=== PATIENT | female | born 1985 | race Caucasian/White ===

== ENCOUNTER 2017-05-09 08:40 | Emergency (ER) | payer OTHER, MEDICAID ==
[~2017-05-09] VITALS: Ht 154.9 cm; Wt 61.7 kg
[~2017-05-09 08:40] MED LIST: AMOXICILLIN 50500 MG PO; AMOXICILLIN500 M1 PO; AZITHROMYCIN 2250 MG PO; CLARITIN-D 241 EACH PO; CYCLOBENZAPRINE5 MG PO; DIFLUCAN150 MG PO; FLAGYL500 MG PO; HYDROCODON-ACE1 EAC7 PO; LEVAQUIN 500 M500 M2 PO; MACROBID 100 M100 M1 PO; MEDROLDOSEPACK PO; NAPROSYN500 MG PO; NOHOMEMEDICATIONS; NORCO 5-325 TA1 EACH PO; PROAIR HFA8.5 GM IH; PROMETHAZINE D480 ML PO; TESSALON PERLE100 MG PO; TRAMADOL 50 MG50 MG PO; TRINATE TABLET1 TAB; TUSSIONEX PENN473 ML PO; UNKNOWN ANTIBIOTIC; ZOFRAN ODT4 MG DISSOLVE; ZOFRAN ODT4 MG PO; ZPAK PO
[2017-05-09 08:59] LABS: URINE BILIRUBIN NEGATIVE (Negative); URINE BLOOD NEGATIVE (Negative); URINE CLARITY CLEAR; URINE COLOR YELLOW; URINE GLUCOSE-RANDOM NEGATIVE (Negative); URINE KETONES NEGATIVE (Negative); URINE LEUKOCYTES-REFLEX 1+ (Negative); URINE NITRITE-REFLEX NEGATIVE (Negative); URINE PROTEIN NEGATIVE (Negative); URINE UROBILINOGEN 0.2 E.U./dl (0.2-1.0)
[2017-05-09 09:07] LABS: SQUAMOUS >10 Many /LPF (0-3)
[2017-05-09 09:08] LABS: BACTERIA-REFLEX 1-9 Few /HPF (None Seen); CASTS None Seen /LPF (None Seen); CRYSTALS None Seen /LPF (None Seen); MUCUS 4-6 Moderate strn/LPF (None Seen); URINE RBC 0-2 Rare /HPF (0-2); URINE WBC-REFLEX 6-15 Few /HPF (0-5)
[2017-05-09] MEDS ORDERED: BACTRIM DS TAB1 EACH PO (09:09)
[2017-05-09] MEDS ORDERED: PHENAZOPYRIDIN200 M2 PO (09:09)
[2017-05-09 09:32] VITALS: BP 138/66
== END 2017-05-09 09:32 | disposition home or self-care (01) ==
LOC: M.ERS 08:40
PROVIDERS: Emergency Medicine Emergency Medical Services
DX: N39.0 Urinary tract infection, site not specified (principal); F17.210 Nicotine dependence, cigarettes, uncomplicated; Z88.5 Allergy status to narcotic agent

== ENCOUNTER 2017-07-05 11:18 | Emergency (ER) | payer OTHER, MEDICAID ==
[~2017-07-05] VITALS: Ht 154.9 cm; Wt 54.4 kg
[~2017-07-05 11:18] MED LIST changes: +BACTRIM DS TAB1 EACH PO; +PHENAZOPYRIDIN200 M2 PO
[2017-07-05] MEDS ORDERED: TYLENOL EXTRA500 MG PO (11:27)
[2017-07-05] MEDS ORDERED: IBUPROFEN 800800 M1 PO (11:27)
[2017-07-05] MEDS ORDERED: PREDNISONE 20 M20 M1 PO (11:35)
[2017-07-05] MEDS ORDERED: ROBAXIN 750 MG750 M1 PO (11:35)
[2017-07-05 12:10] VITALS: BP 109/74
== END 2017-07-05 12:12 | disposition home or self-care (01) ==
LOC: M.ERS 11:18
DX: M54.42 Lumbago with sciatica, left side (principal); F17.210 Nicotine dependence, cigarettes, uncomplicated; Z88.5 Allergy status to narcotic agent

== ENCOUNTER 2017-08-18 12:27 | Emergency (ER) | payer OTHER, MEDICAID ==
[~2017-08-18] VITALS: Ht 157.5 cm; Wt 61.2 kg
[~2017-08-18 12:27] MED LIST changes: +IBUPROFEN 800800 M1 PO; +PREDNISONE 20 M20 M1 PO; +ROBAXIN 750 MG750 M1 PO; +TYLENOL EXTRA500 MG PO
[2017-08-18 12:54] LABS: URINE BILIRUBIN NEGATIVE (Negative); URINE BLOOD NEGATIVE (Negative); URINE CLARITY CLEAR; URINE COLOR YELLOW; URINE GLUCOSE-RANDOM NEGATIVE (Negative); URINE KETONES NEGATIVE (Negative); URINE LEUKOCYTES-REFLEX NEGATIVE (Negative); URINE NITRITE-REFLEX NEGATIVE (Negative); URINE PROTEIN NEGATIVE (Negative); URINE UROBILINOGEN 0.2 E.U./dl (0.2-1.0)
[2017-08-18 12:54] LABS: ABSOLUTE EOSINOPHILS 0.1 thou/uL (0.0-0.7); ABSOLUTE LYMPHOCYTES 2.4 thou/uL (0.8-5.3); ABSOLUTE MONOCYTES 0.3 thou/uL (0.0-1.2); ABSOLUTE NEUTROPHILS 6.4 thou/uL (1.6-8.1); BASOPHILS 0.5 %; EOSINOPHILS 0.8 %; HEMATOCRIT 43.7 % (37.0-47.0); HEMOGLOBIN 14.7 gm/dL (12.0-15.0); LYMPHOCYTES 26.2 %; MCH 31.4 pg (26.0-34.0); MCHC 33.7 g/dL (28.0-37.0); MCV 93.1 fL (80.0-100.0); MONOCYTES 3.5 %; NUCLEATED RBCS 0 /100WBC; PLATELET COUNT* 416 thou/uL (150-400); RBC 4.69 mil/uL (4.20-5.00); RDW-CV 13.2 % (10.5-14.5); WBC 9.2 thou/uL (4.0-11.0)
[2017-08-18 12:58] LABS: CALCIUM 9.2 mg/dL (8.5-10.1); CREATININE 0.9 mg/dL (0.6-1.3); POTASSIUM 4.1 mmol/L (3.5-5.1)
[2017-08-18 13:03] LABS: ALBUMIN 4.3 g/dL (3.4-5.0); TOTAL BILIRUBIN 0.3 mg/dL (<0.1-1.0); TOTAL PROTEIN 7.7 g/dL (6.4-8.2)
[2017-08-18 13:22] VITALS: BP 118/73
== END 2017-08-18 13:23 | disposition home or self-care (01) ==
LOC: M.ERS 12:27
PROVIDERS: Physician Assistant
DX: R19.7 Diarrhea, unspecified (principal); F17.210 Nicotine dependence, cigarettes, uncomplicated; Z88.5 Allergy status to narcotic agent; Z88.6 Allergy status to analgesic agent

== ENCOUNTER 2017-08-28 17:28 | Emergency (ER) | payer OTHER, MEDICAID ==
[~2017-08-28] VITALS: Ht 154.9 cm; Wt 58.5 kg
[2017-08-28] MEDS ORDERED: DIPHENHIST50 MG PO (18:33)
[2017-08-28] MEDS ORDERED: PREDNISONE50 MG PO (18:33)
[2017-08-28 18:54] VITALS: BP 132/70
== END 2017-08-28 18:54 | disposition home or self-care (01) ==
LOC: M.ERS 17:28
DX: T78.40XA Allergy, unspecified, initial encounter (principal); F17.210 Nicotine dependence, cigarettes, uncomplicated; X58.XXXA Exposure to other specified factors, initial encounter

== ENCOUNTER 2017-09-28 08:06 | Emergency (ER) | payer OTHER, MEDICAID ==
[~2017-09-28] VITALS: Ht 154.9 cm; Wt 54.4 kg
[~2017-09-28 08:06] MED LIST changes: +DIPHENHIST50 MG PO; +PREDNISONE50 MG PO
[2017-09-28] MEDS ORDERED: AMOXICILLIN 50500 MG PO (08:45)
[2017-09-28 08:50] VITALS: BP 119/68
== END 2017-09-28 08:50 | disposition home or self-care (01) ==
LOC: M.ERS 08:06
DX: J06.9 Acute upper respiratory infection, unspecified (principal); J02.9 Acute pharyngitis, unspecified; R51 Headache; F17.210 Nicotine dependence, cigarettes, uncomplicated; Z88.5 Allergy status to narcotic agent; Z91.09 Other allergy status, other than to drugs and biological substances

== ENCOUNTER 2017-10-04 09:18 | Emergency (ER) | payer OTHER, MEDICAID ==
[~2017-10-04] VITALS: Ht 154.9 cm; Wt 58.1 kg
[2017-10-04 09:32] VITALS: BP 123/77
[2017-10-04 09:38] LABS: URINE BILIRUBIN NEGATIVE (Negative); URINE BLOOD NEGATIVE (Negative); URINE CLARITY CLEAR; URINE COLOR YELLOW; URINE GLUCOSE-RANDOM NEGATIVE (Negative); URINE KETONES NEGATIVE (Negative); URINE LEUKOCYTES-REFLEX TRACE (Negative); URINE NITRITE-REFLEX NEGATIVE (Negative); URINE PROTEIN NEGATIVE (Negative); URINE UROBILINOGEN 0.2 E.U./dl (0.2-1.0)
[2017-10-04] MEDS ORDERED: KEFLEX500 M1 PO (09:44)
[2017-10-04 10:21] LABS: BACTERIA-REFLEX >30 Many /HPF (None Seen); MUCUS 0-3 Light strn/LPF (None Seen); SQUAMOUS >10 Many /LPF (0-3); URINE WBC-REFLEX 6-15 Few /HPF (0-5)
[2017-10-04 10:22] LABS: CASTS None Seen /LPF (None Seen); CRYSTALS None Seen /LPF (None Seen); URINE RBC 0-2 Rare /HPF (0-2)
== END 2017-10-04 09:52 | disposition home or self-care (01) ==
LOC: M.ERS 09:18
PROVIDERS: Emergency Medicine Emergency Medical Services
DX: N39.0 Urinary tract infection, site not specified (principal); J32.9 Chronic sinusitis, unspecified; F17.210 Nicotine dependence, cigarettes, uncomplicated

== ENCOUNTER 2017-10-06 19:28 | Emergency (ER) | payer OTHER, MEDICAID ==
[~2017-10-06] VITALS: Ht 154.9 cm; Wt 59.9 kg
[~2017-10-06 19:28] MED LIST changes: +KEFLEX500 M1 PO
[2017-10-06 19:38] VITALS: BP 132/76
== END 2017-10-06 19:58 | disposition home or self-care (01) ==
LOC: M.ERS 19:28
DX: S41.112D Laceration without foreign body of left upper arm, subsequent encounter (principal); F17.210 Nicotine dependence, cigarettes, uncomplicated; X58.XXXD Exposure to other specified factors, subsequent encounter

== ENCOUNTER 2017-12-06 11:30 | Emergency (ER) | payer OTHER, MEDICAID ==
[~2017-12-06] VITALS: Ht 154.9 cm; Wt 56.7 kg
[2017-12-06] MEDS ORDERED: ERYTHROMYCIN E3.5 G3 OPHTHALMIC (11:45)
[2017-12-06 11:53] VITALS: BP 116/71
== END 2017-12-06 11:54 | disposition home or self-care (01) ==
LOC: M.ERS 11:30
DX: H00.022 Hordeolum internum right lower eyelid (principal); F17.210 Nicotine dependence, cigarettes, uncomplicated

== ENCOUNTER 2018-01-17 10:37 | Emergency (ER) | payer OTHER, MEDICAID ==
[~2018-01-17] VITALS: Ht 154.9 cm; Wt 54.4 kg
[~2018-01-17 10:37] MED LIST changes: +ERYTHROMYCIN E3.5 G3 OPHTHALMIC
[2018-01-17 11:11] VITALS: BP 124/67
== END 2018-01-17 11:11 | disposition home or self-care (01) ==
LOC: M.ERS 10:37
DX: M25.561 Pain in right knee (principal); F17.210 Nicotine dependence, cigarettes, uncomplicated

== ENCOUNTER 2018-01-27 14:54 | Emergency (ER) | payer OTHER, MEDICAID ==
[~2018-01-27] VITALS: Ht 154.9 cm; Wt 54.4 kg
[2018-01-27 15:58] LABS: URINE BILIRUBIN NEGATIVE (Negative); URINE BLOOD NEGATIVE (Negative); URINE CLARITY CLEAR; URINE COLOR YELLOW; URINE GLUCOSE-RANDOM NEGATIVE (Negative); URINE KETONES NEGATIVE (Negative); URINE LEUKOCYTES-REFLEX NEGATIVE (Negative); URINE PROTEIN NEGATIVE (Negative); URINE SPECIFIC GRAVITY 1.025 (1.005-1.030); URINE UROBILINOGEN 0.2 E.U./dl (0.2-1.0)
[2018-01-27 16:00] LABS: URINE NITRITE-REFLEX POSITIVE (Negative)
[2018-01-27 16:23] LABS: MUCUS 4-6 Moderate strn/LPF (None Seen)
[2018-01-27 16:24] LABS: BACTERIA-REFLEX >30 Many /HPF (None Seen); SQUAMOUS 4-10 Moderate /LPF (0-3)
[2018-01-27 16:25] LABS: CASTS None Seen /LPF (None Seen); CRYSTALS None Seen /LPF (None Seen); URINE WBC-REFLEX 6-15 Few /HPF (0-5)
[2018-01-27 16:26] LABS: URINE RBC None Seen /HPF (0-2)
[2018-01-27] MEDS ORDERED: MACROBID 100 M100 M1 PO (16:32)
[2018-01-27 16:38] VITALS: BP 114/77
== END 2018-01-27 16:38 | disposition home or self-care (01) ==
LOC: M.ERS 14:54
PROVIDERS: Nurse Practitioner Family
DX: N39.0 Urinary tract infection, site not specified (principal); F17.210 Nicotine dependence, cigarettes, uncomplicated

== ENCOUNTER 2018-02-28 12:53 | Emergency (ER) | payer OTHER, MEDICAID ==
[~2018-02-28] VITALS: Ht 154.9 cm; Wt 56.7 kg
[2018-02-28] MEDS ORDERED: BENTYL 10 MG CA10 M1 PO (13:36)
[2018-02-28 13:40] LABS: URINE BILIRUBIN NEGATIVE (Negative); URINE BLOOD NEGATIVE (Negative); URINE CLARITY CLEAR; URINE COLOR YELLOW; URINE GLUCOSE-RANDOM NEGATIVE (Negative); URINE KETONES NEGATIVE (Negative); URINE LEUKOCYTES-REFLEX NEGATIVE (Negative); URINE NITRITE-REFLEX NEGATIVE (Negative); URINE PROTEIN NEGATIVE (Negative); URINE SPECIFIC GRAVITY >= 1.030 (1.005-1.030); URINE UROBILINOGEN 0.2 E.U./dl (0.2-1.0)
[2018-02-28] MEDS ORDERED: FLAGYL500 M1 PO (13:58)
[2018-02-28 14:12] VITALS: BP 116/52
== END 2018-02-28 14:13 | disposition home or self-care (01) ==
LOC: M.ERS 12:53
PROVIDERS: Nurse Practitioner Family
DX: K52.9 Noninfective gastroenteritis and colitis, unspecified (principal); F17.210 Nicotine dependence, cigarettes, uncomplicated

== ENCOUNTER 2018-03-23 15:54 | Emergency (ER) | payer OTHER, MEDICAID ==
[~2018-03-23] VITALS: Ht 154.9 cm; Wt 56.7 kg
[~2018-03-23 15:54] MED LIST changes: +BENTYL 10 MG CA10 M1 PO; +FLAGYL500 M1 PO
[2018-03-23 16:24] LABS: URINE BILIRUBIN NEGATIVE (Negative); URINE BLOOD NEGATIVE (Negative); URINE CLARITY SL CLOUDY; URINE COLOR YELLOW; URINE GLUCOSE-RANDOM NEGATIVE (Negative); URINE KETONES NEGATIVE (Negative); URINE LEUKOCYTES-REFLEX NEGATIVE (Negative); URINE NITRITE-REFLEX NEGATIVE (Negative); URINE PROTEIN NEGATIVE (Negative); URINE SPECIFIC GRAVITY >= 1.030 (1.005-1.030); URINE UROBILINOGEN 0.2 E.U./dl (0.2-1.0)
[2018-03-23 16:32] LABS: ABSOLUTE LYMPHOCYTES 2.1 thou/uL (0.8-5.3); ABSOLUTE MONOCYTES 0.4 thou/uL (0.0-1.2); ABSOLUTE NEUTROPHILS 5.2 thou/uL (1.6-8.1); BASOPHILS 0.6 %; EOSINOPHILS 0.5 %; HEMATOCRIT 42.5 % (37.0-47.0); HEMOGLOBIN 14.2 gm/dL (12.0-15.0); LYMPHOCYTES 26.5 %; MCH 30.5 pg (26.0-34.0); MCHC 33.5 g/dL (28.0-37.0); MCV 91.1 fL (80.0-100.0); MONOCYTES 4.8 %; MPV 7.7 fl. (7.2-11.1); NUCLEATED RBCS 0 /100WBC; PLATELET COUNT* 324 thou/uL (150-400); POLYS 67.6 %; RBC 4.66 mil/uL (4.20-5.00); RDW-CV 13.7 % (10.5-14.5); WBC 7.8 thou/uL (4.0-11.0)
[2018-03-23 16:37] LABS: SQUAMOUS >10 Many /LPF (0-3); URINE WBC-REFLEX 0-5 Rare /HPF (0-5)
[2018-03-23 16:38] LABS: BACTERIA-REFLEX 1-9 Few /HPF (None Seen); URINE RBC 0-2 Rare /HPF (0-2)
[2018-03-23 16:58] LABS: CALCIUM 9.2 mg/dL (8.5-10.1); CREATININE 0.9 mg/dL (0.6-1.3); POTASSIUM 3.6 mmol/L (3.5-5.1)
[2018-03-23 17:02] LABS: ALBUMIN 4.1 g/dL (3.4-5.0); TOTAL BILIRUBIN 0.4 mg/dL (<0.1-1.0); TOTAL PROTEIN 7.3 g/dL (6.4-8.2)
[2018-03-23 18:18] VITALS: BP 114/66
== END 2018-03-23 18:19 | disposition home or self-care (01) ==
LOC: M.ERS 15:54
PROVIDERS: Physician Assistant
DX: K59.00 Constipation, unspecified (principal); F17.210 Nicotine dependence, cigarettes, uncomplicated; Z87.440 Personal history of urinary (tract) infections; Z98.890 Other specified postprocedural states

== ENCOUNTER 2018-04-24 14:31 | Emergency (ER) | payer OTHER, MEDICAID ==
[~2018-04-24] VITALS: Ht 154.9 cm; Wt 54.4 kg
[2018-04-24] MEDS ORDERED: NAPROSYN500 MG PO (15:14)
[2018-04-24] MEDS ORDERED: ROBAXIN 750 MG750 M1 PO (15:14)
[2018-04-24 15:38] VITALS: BP 136/72
== END 2018-04-24 15:51 | disposition home or self-care (01) ==
LOC: M.ERS 14:31
DX: M54.2 Cervicalgia (principal); F17.210 Nicotine dependence, cigarettes, uncomplicated; Z87.440 Personal history of urinary (tract) infections; Z98.890 Other specified postprocedural states

== ENCOUNTER 2018-05-16 09:06 | Emergency (ER) | payer OTHER, MEDICAID ==
[~2018-05-16] VITALS: Ht 154.9 cm; Wt 54.4 kg
[2018-05-16 09:25] LABS: ABSOLUTE EOSINOPHILS 0.2 thou/uL (0.0-0.7); ABSOLUTE LYMPHOCYTES 2.4 thou/uL (0.8-5.3); ABSOLUTE MONOCYTES 0.4 thou/uL (0.0-1.2); ABSOLUTE NEUTROPHILS 3.5 thou/uL (1.6-8.1); BASOPHILS 0.5 %; EOSINOPHILS 2.9 %; HEMATOCRIT 44.6 % (37.0-47.0); HEMOGLOBIN 15.1 gm/dL (12.0-15.0); LYMPHOCYTES 36.8 %; MCH 31.6 pg (26.0-34.0); MCHC 33.9 g/dL (28.0-37.0); MCV 93.2 fL (80.0-100.0); MONOCYTES 6.7 %; MPV 7.4 fl. (7.2-11.1); NUCLEATED RBCS 0 /100WBC; PLATELET COUNT* 377 thou/uL (150-400); POLYS 53.1 %; RBC 4.79 mil/uL (4.20-5.00); RDW-CV 13.7 % (10.5-14.5); WBC 6.6 thou/uL (4.0-11.0)
[2018-05-16 09:35] LABS: ANION GAP 6 mmol/L (7-16); BUN 10 mg/dL (7-18); CALCIUM 9.3 mg/dL (8.5-10.1); CHLORIDE 104 mmol/L (98-107); CO2 28 mmol/L (21-32); CREATININE 0.7 mg/dL (0.6-1.3); GLUCOSE 112 mg/dL (70-99); POTASSIUM 4.3 mmol/L (3.5-5.1); SODIUM 138 mmol/L (136-145)
[2018-05-16 09:46] LABS: ALBUMIN 4.2 g/dL (3.4-5.0); ALKALINE PHOSPHATASE 53 U/L (46-116); LIPASE 252 U/L (73-393); MAGNESIUM 1.9 mg/dL (1.8-2.4); NT-PRO BRAIN NAT PEPTIDE 22 pg/mL (<300); SGOT 19 U/L (15-37); SGPT 32 U/L (30-65); TOTAL BILIRUBIN 0.4 mg/dL (<0.1-1.0); TOTAL PROTEIN 7.6 g/dL (6.4-8.2); TROPONIN-I LEVEL <0.06 ng/mL (<0.06)
[2018-05-16] MEDS ORDERED: HYDROCODONE-AP1 EAC6 PO (11:53)
[2018-05-16 11:55] VITALS: BP 104/68
--- NOTE | 2018-05-17 11:02 | EKG ---
[place] [address] ELECTROCARDIOGRAM REPORT Name: ARNALDO MITTAL Room: [facility]#: [id number] Admission: 05/16/18 Attend Phys: Discharge: 05/16/18 Date of : 85 Report #: [id number] THIS REPORT FOR: //name// [facility] ED Test Date: 2018-05-16 Test Time: 09:13:23 Pat Name: ARNALDO MITTAL Department: Room: Gender: F Pc Analyst: SYED : 1985 Requested By: Prasanth Vela Order Number: [id number] MD: Gerard Garcia Measurements Intervals [place] Rate: 74 P: 44 LA: 142 QRS: 35 QRSD: 85 T: 54 QT: 361 QTc: 401 Interpretive Statements Sinus rhythm Baseline wander in lead(s) V4,V5,V6 Compared to ECG 05/29/2016 19:00:30 Sinus tachycardia no longer present Electronically Signed On 05-17-2018 11:01:43 [employer] TE[employer] by Gerard Garcia [email or web address] <ELECTRONICALLY SIGNED> By: Gerard Garcia MD, [facility] 05/17/18 1101 2 2 Gerard Garcia MD, FACC /EPI
--- NOTE | 2018-05-17 11:04 | EKG ---
[place] [address] ELECTROCARDIOGRAM REPORT Name: ARNALDO MITTAL [id number] Admission: 05/16/18 Attend Phys: Discharge: 05/16/18 Date of : 85 Report #: [id number] THIS REPORT FOR: //name// [facility] ED Test Date: 2018-05-16 Test Time: 11:13:24 Pat Name: ARNALDO MITTAL Department: Room: Gender: F Broadband Installer: : 1985 Requested By: Prasanth Vela Order Number: [id number] MD: Gerard Garcia Measurements Intervals [place] Rate: 68 P: 41 MS: 142 QRS: 36 QRSD: 80 T: 39 QT: 363 QTc: 387 Interpretive Statements Sinus rhythm Probable anteroseptal infarct, old Electronically Signed On 05-17-2018 11:03:49 [employer] ARTIST by Gerard Garcia [email or web address] <ELECTRONICALLY SIGNED> By: Gerard Garcia MD, [facility] 05/17/18 1103 1113 1113 Gerard Garcia MD, FACC /EPI
== END 2018-05-16 11:57 | disposition home or self-care (01) ==
LOC: M.ERS 09:06
PROVIDERS: Emergency Medicine Emergency Medical Services
DX: R07.89 Other chest pain (principal); F17.210 Nicotine dependence, cigarettes, uncomplicated

== ENCOUNTER 2018-05-25 15:01 | Emergency (ER) | payer OTHER, MEDICAID ==
[~2018-05-25] VITALS: Ht 165.1 cm; Wt 61.2 kg
[~2018-05-25 15:01] MED LIST changes: +HYDROCODONE-AP1 EAC6 PO
[2018-05-25 16:00] LABS: URINE BILIRUBIN NEGATIVE (Negative); URINE BLOOD NEGATIVE (Negative); URINE CLARITY CLEAR; URINE COLOR YELLOW; URINE GLUCOSE-RANDOM NEGATIVE (Negative); URINE KETONES NEGATIVE (Negative); URINE LEUKOCYTES-REFLEX NEGATIVE (Negative); URINE NITRITE-REFLEX NEGATIVE (Negative); URINE PROTEIN NEGATIVE (Negative); URINE UROBILINOGEN 0.2 E.U./dl (0.2-1.0)
[2018-05-25 16:18] LABS: ABSOLUTE BASOPHILS 0.1 thou/uL (0.0-0.2); ABSOLUTE EOSINOPHILS 0.1 thou/uL (0.0-0.7); ABSOLUTE LYMPHOCYTES 2.3 thou/uL (0.8-5.3); ABSOLUTE MONOCYTES 0.5 thou/uL (0.0-1.2); ABSOLUTE NEUTROPHILS 6.6 thou/uL (1.6-8.1); BASOPHILS 0.6 %; EOSINOPHILS 0.6 %; HEMATOCRIT 45.6 % (37.0-47.0); HEMOGLOBIN 15.3 gm/dL (12.0-15.0); LYMPHOCYTES 24.7 %; MCH 30.8 pg (26.0-34.0); MCHC 33.6 g/dL (28.0-37.0); MCV 91.8 fL (80.0-100.0); MONOCYTES 4.8 %; MPV 7.6 fl. (7.2-11.1); NUCLEATED RBCS 0 /100WBC; PLATELET COUNT* 422 thou/uL (150-400); POLYS 69.3 %; RBC 4.97 mil/uL (4.20-5.00); RDW-CV 13.2 % (10.5-14.5); WBC 9.5 thou/uL (4.0-11.0)
[2018-05-25 16:26] LABS: CALCIUM 9.8 mg/dL (8.5-10.1); CREATININE 0.7 mg/dL (0.6-1.3); POTASSIUM 4.3 mmol/L (3.5-5.1)
[2018-05-25 16:30] LABS: ALBUMIN 4.4 g/dL (3.4-5.0); TOTAL BILIRUBIN 0.2 mg/dL (<0.1-1.0); TOTAL PROTEIN 8.1 g/dL (6.4-8.2)
[2018-05-25] MEDS ORDERED: NORCO 5-325 TA1 EACH PO (19:34)
[2018-05-25 19:47] VITALS: BP 126/85
== END 2018-05-25 19:47 | disposition home or self-care (01) ==
LOC: M.ERS 15:01
PROVIDERS: Nurse Practitioner Family
DX: K59.00 Constipation, unspecified (principal); F17.210 Nicotine dependence, cigarettes, uncomplicated; Z98.890 Other specified postprocedural states; Z87.440 Personal history of urinary (tract) infections

== ENCOUNTER 2018-05-30 11:17 | Emergency (ER) | payer OTHER, MEDICAID ==
[~2018-05-30] VITALS: Ht 154.9 cm; Wt 54.0 kg
[2018-05-30 13:16] LABS: URINE BILIRUBIN NEGATIVE (Negative); URINE BLOOD NEGATIVE (Negative); URINE CLARITY SL CLOUDY; URINE COLOR YELLOW; URINE GLUCOSE-RANDOM NEGATIVE (Negative); URINE KETONES NEGATIVE (Negative); URINE LEUKOCYTES-REFLEX NEGATIVE (Negative); URINE NITRITE-REFLEX NEGATIVE (Negative); URINE PROTEIN NEGATIVE (Negative); URINE SPECIFIC GRAVITY 1.025 (1.005-1.030); URINE UROBILINOGEN 0.2 E.U./dl (0.2-1.0)
[2018-05-30 13:17] LABS: ABSOLUTE EOSINOPHILS 0.1 thou/uL (0.0-0.7); ABSOLUTE LYMPHOCYTES 2.1 thou/uL (0.8-5.3); ABSOLUTE MONOCYTES 0.5 thou/uL (0.0-1.2); ABSOLUTE NEUTROPHILS 3.8 thou/uL (1.6-8.1); BASOPHILS 0.7 %; EOSINOPHILS 1.3 %; HEMATOCRIT 42.9 % (37.0-47.0); HEMOGLOBIN 14.6 gm/dL (12.0-15.0); LYMPHOCYTES 31.8 %; MCH 31.5 pg (26.0-34.0); MCV 92.6 fL (80.0-100.0); MONOCYTES 7.5 %; MPV 7.4 fl. (7.2-11.1); NUCLEATED RBCS 0 /100WBC; PLATELET COUNT* 374 thou/uL (150-400); POLYS 58.7 %; RBC 4.63 mil/uL (4.20-5.00); RDW-CV 13.2 % (10.5-14.5); WBC 6.5 thou/uL (4.0-11.0)
[2018-05-30 13:24] LABS: SQUAMOUS >10 Many /LPF (0-3)
[2018-05-30 13:25] LABS: BACTERIA-REFLEX 1-9 Few /HPF (None Seen); CASTS None Seen /LPF (None Seen); CRYSTALS None Seen /LPF (None Seen); MUCUS None Seen strn/LPF (None Seen); URINE RBC None Seen /HPF (0-2); URINE WBC-REFLEX 0-5 Rare /HPF (0-5)
[2018-05-30 13:36] LABS: CALCIUM 9.1 mg/dL (8.5-10.1); CREATININE 0.6 mg/dL (0.6-1.3); POTASSIUM 4.2 mmol/L (3.5-5.1)
[2018-05-30 13:40] LABS: TOTAL BILIRUBIN 0.3 mg/dL (<0.1-1.0); TOTAL PROTEIN 7.2 g/dL (6.4-8.2)
[2018-05-30] MEDS ORDERED: ULTRAM 50MG TAB50 MG PO (15:05)
[2018-05-30] MEDS ORDERED: TORADOL 10 MG T10 MG PO (15:05)
[2018-05-30 15:40] VITALS: BP 107/57
== END 2018-05-30 15:41 | disposition home or self-care (01) ==
LOC: M.ERS 11:17
PROVIDERS: Personal Emergency Response Attendant
DX: R19.7 Diarrhea, unspecified (principal); F17.210 Nicotine dependence, cigarettes, uncomplicated

== ENCOUNTER 2018-07-28 11:14 | Emergency (ER) | payer OTHER, MEDICAID ==
[~2018-07-28] VITALS: Ht 154.9 cm; Wt 53.5 kg
[~2018-07-28 11:14] MED LIST changes: +TORADOL 10 MG T10 MG PO; +ULTRAM 50MG TAB50 MG PO
[2018-07-28 11:24] VITALS: BP 131/73
[2018-07-28] MEDS ORDERED: BENTYL 10 MG CA10 M1 PO (11:28)
[2018-07-28] MEDS ORDERED: ROBAXIN 750 MG750 M1 PO (11:39)
[2018-07-28] MEDS ORDERED: MEDROLDOSEPACK PO (11:39)
[2018-07-28] MEDS ORDERED: TRAMADOL 50 MG50 MG PO (11:39)
== END 2018-07-28 11:52 | disposition home or self-care (01) ==
LOC: M.ERS 11:14
DX: M54.2 Cervicalgia (principal); F17.210 Nicotine dependence, cigarettes, uncomplicated

== ENCOUNTER 2018-08-30 17:58 | Emergency (ER) | payer OTHER, MEDICAID ==
[~2018-08-30] VITALS: Ht 157.5 cm; Wt 59.0 kg
[2018-08-30] MEDS ORDERED: BUTALB-APAP-CA1 EACH PO (18:20)
[2018-08-30] MEDS ORDERED: ONDANSETRON HCL4 M2 PO (18:20)
[2018-08-30] MEDS ORDERED: AMOXICILLIN 50500 MG PO (18:21)
[2018-08-30 18:28] VITALS: BP 121/75
== END 2018-08-30 18:30 | disposition home or self-care (01) ==
LOC: M.ERS 17:58
DX: J01.10 Acute frontal sinusitis, unspecified (principal); J01.00 Acute maxillary sinusitis, unspecified; F17.210 Nicotine dependence, cigarettes, uncomplicated

== ENCOUNTER 2019-01-14 11:52 | Emergency (ER) | payer OTHER, MEDICAID ==
[~2019-01-14] VITALS: Ht 154.9 cm; Wt 58.1 kg
[~2019-01-14 11:52] MED LIST changes: +BUTALB-APAP-CA1 EACH PO; +ONDANSETRON HCL4 M2 PO
[2019-01-14] MEDS ORDERED: NORCO 5-325 TA1 EAC1 PO (13:03)
[2019-01-14 13:23] VITALS: BP 137/90
== END 2019-01-14 13:24 | disposition home or self-care (01) ==
LOC: M.ERS 11:52
DX: S62.655A Nondisplaced fracture of middle phalanx of left ring finger, initial encounter for closed fracture (principal); F17.210 Nicotine dependence, cigarettes, uncomplicated; W23.1XXA Caught, crushed, jammed, or pinched between stationary objects, initial encounter; Y92.89 Other specified places as the place of occurrence of the external cause; Y93.89 Activity, other specified; Y99.8 Other external cause status

== ENCOUNTER 2019-12-30 10:46 | Emergency (ER) | payer OTHER, MEDICAID ==
[~2019-12-30] VITALS: Ht 154.9 cm; Wt 54.0 kg
[~2019-12-30 10:46] MED LIST changes: +NORCO 5-325 TA1 EAC1 PO
[2019-12-30 11:41] LABS: ABSOLUTE EOSINOPHILS 0.1 thou/uL (0.0-0.7); ABSOLUTE LYMPHOCYTES 1.7 thou/uL (0.8-5.3); ABSOLUTE MONOCYTES 0.5 thou/uL (0.0-1.2); ABSOLUTE NEUTROPHILS 4.1 thou/uL (1.6-8.1); BASOPHILS 0.8 %; EOSINOPHILS 1.5 %; HEMATOCRIT 40.7 % (37.0-47.0); HEMOGLOBIN 14.1 gm/dL (12.0-15.0); MCH 30.9 pg (26.0-34.0); MCHC 34.7 g/dL (28.0-37.0); MCV 89.2 fL (80.0-100.0); MPV 6.9 fl. (7.2-11.1); NUCLEATED RBCS 0 /100WBC; PLATELET COUNT* 362 thou/uL (150-400); POLYS 62.7 %; RBC 4.57 mil/uL (4.20-5.00); WBC 6.5 thou/uL (4.0-11.0)
[2019-12-30 11:51] LABS: CALCIUM 9.3 mg/dL (8.5-10.1); CREATININE 0.7 mg/dL (0.6-1.3); POTASSIUM 4.2 mmol/L (3.5-5.1)
[2019-12-30 11:55] LABS: TOTAL BILIRUBIN 0.3 mg/dL (<0.1-1.0); TOTAL PROTEIN 7.8 g/dL (6.4-8.2)
[2019-12-30] MEDS ORDERED: AUGMENTIN 875-1 EACH PO (13:23)
[2019-12-30 13:41] VITALS: BP 115/70
== END 2019-12-30 13:41 | disposition home or self-care (01) ==
LOC: M.ERS 10:46
PROVIDERS: Emergency Medicine Emergency Medical Services
DX: J32.9 Chronic sinusitis, unspecified (principal); R10.12 Left upper quadrant pain; R11.2 Nausea with vomiting, unspecified; F17.210 Nicotine dependence, cigarettes, uncomplicated; Z90.49 Acquired absence of other specified parts of digestive tract; Z90.710 Acquired absence of both cervix and uterus; Z98.51 Tubal ligation status; Z87.440 Personal history of urinary (tract) infections

== ENCOUNTER 2021-02-03 08:17 | Emergency (ER) | payer OTHER, MEDICAID ==
[~2021-02-03] VITALS: Ht 157.5 cm; Wt 60.3 kg
[~2021-02-03 08:17] MED LIST changes: +AUGMENTIN 875-1 EACH PO
[2021-02-03 08:31] VITALS: BP 123/77
[2021-02-03] MEDS ORDERED: ESTROGEN (08:35)
[2021-02-03] MEDS ORDERED: AUGMENTIN 875-1 EACH PO (10:10)
== END 2021-02-03 10:22 | disposition home or self-care (01) ==
LOC: M.ERS 08:17
DX: J06.9 Acute upper respiratory infection, unspecified (principal); Z20.822 Contact with and (suspected) exposure to COVID-19; J32.0 Chronic maxillary sinusitis; F17.210 Nicotine dependence, cigarettes, uncomplicated; Z90.710 Acquired absence of both cervix and uterus; Z90.89 Acquired absence of other organs; Z98.890 Other specified postprocedural states; Z90.49 Acquired absence of other specified parts of digestive tract

== ENCOUNTER 2021-03-16 08:53 | Emergency (ER) | payer OTHER, MEDICAID ==
[~2021-03-16] VITALS: Ht 157.5 cm; Wt 60.3 kg
[~2021-03-16 08:53] MED LIST changes: +ESTROGEN
[2021-03-16] MEDS ORDERED: MINIVELLE1 EAC1 TOP (09:06)
[2021-03-16 09:27] LABS: INFLUENZA A ANTIGEN Negative (Negative); INFLUENZA B ANTIGEN Negative (Negative)
[2021-03-16] MEDS ORDERED: HYDROCODON-ACE1 EAC7 PO (09:55)
[2021-03-16] MEDS ORDERED: AMOXICILLIN 50500 MG PO (09:55)
[2021-03-16] MEDS ORDERED: ZOFRAN ODT4 MG DISSOLVE (10:01)
[2021-03-16 10:05] VITALS: BP 121/72
== END 2021-03-16 10:06 | disposition home or self-care (01) ==
LOC: M.ERS 08:53
PROVIDERS: Family Medicine
DX: J32.9 Chronic sinusitis, unspecified (principal); Z20.822 Contact with and (suspected) exposure to COVID-19; F17.210 Nicotine dependence, cigarettes, uncomplicated; Z98.51 Tubal ligation status; Z90.49 Acquired absence of other specified parts of digestive tract; Z90.710 Acquired absence of both cervix and uterus; Z79.899 Other long term (current) drug therapy

== ENCOUNTER 2021-05-19 08:16 | Emergency (ER) | payer OTHER, MEDICAID ==
[~2021-05-19] VITALS: Ht 157.5 cm; Wt 59.0 kg
[~2021-05-19 08:16] MED LIST changes: +MINIVELLE1 EAC1 TOP
[2021-05-19 08:25] VITALS: BP 123/73
[2021-05-19] MEDS ORDERED: PROAIR HFA8.5 GM INH (08:29)
== END 2021-05-19 09:10 | disposition home or self-care (01) ==
LOC: M.ERS 08:16
DX: R51.9 Headache, unspecified (principal); Z20.822 Contact with and (suspected) exposure to COVID-19; F17.210 Nicotine dependence, cigarettes, uncomplicated; J45.909 Unspecified asthma, uncomplicated; Z98.51 Tubal ligation status; Z90.49 Acquired absence of other specified parts of digestive tract; Z90.710 Acquired absence of both cervix and uterus; Z79.899 Other long term (current) drug therapy; Z88.0 Allergy status to penicillin

== ENCOUNTER 2021-06-05 13:24 | Emergency (ER) | payer OTHER, MEDICAID ==
[~2021-06-05] VITALS: Ht 157.5 cm; Wt 61.7 kg
[~2021-06-05 13:24] MED LIST changes: +PROAIR HFA8.5 GM INH
[2021-06-05] MEDS ORDERED: FLEXERIL PO (14:30)
[2021-06-05] MEDS ORDERED: HYDROCODON-ACE1 EAC7 PO (14:40)
[2021-06-05 14:41] VITALS: BP 117/63
== END 2021-06-05 14:41 | disposition home or self-care (01) ==
LOC: M.ERS 13:24
DX: M54.2 Cervicalgia (principal); M79.18 Myalgia, other site; J45.909 Unspecified asthma, uncomplicated; F17.210 Nicotine dependence, cigarettes, uncomplicated; Z98.51 Tubal ligation status; Z90.49 Acquired absence of other specified parts of digestive tract; Z90.710 Acquired absence of both cervix and uterus; Z79.899 Other long term (current) drug therapy; Z88.1 Allergy status to other antibiotic agents; X50.1XXA Overexertion from prolonged static or awkward postures, initial encounter; Y93.75 Activity, martial arts; Y92.89 Other specified places as the place of occurrence of the external cause; Y99.8 Other external cause status